=== PATIENT | female | born 1990 | race Two or more races ===

== ENCOUNTER 2017-01-18 20:35 | Emergency (ER) | payer OTHER ==
[2017-01-18 20:46] VITALS: BP 138/74
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
== END 2017-01-18 21:27 | disposition home or self-care (01) ==
LOC: UCEAST 20:35
DX: T20.20XA Burn of second degree of head, face, and neck, unspecified site, initial encounter (principal); T22.10XA Burn of first degree of shoulder and upper limb, except wrist and hand, unspecified site, initial encounter; T21.11XA Burn of first degree of chest wall, initial encounter; X08.8XXA Exposure to other specified smoke, fire and flames, initial encounter; Y92.9 Unspecified place or not applicable
CPT/HCPCS: 99202; G0463

== ENCOUNTER 2017-01-18 21:45 | Emergency (ER) | payer OTHER ==
[2017-01-19] MEDS ORDERED: Ibuprofen TAB* 200 MG PO ONE (00:28)
[2017-01-19] MEDS ORDERED: Ibuprofen TAB* 200 MG ONE (00:30)
[2017-01-19 00:36] VITALS: BP 131/77
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
== END 2017-01-19 00:35 | disposition home or self-care (01) ==
LOC: ED 21:45
DX: T20.09XA Burn of unspecified degree of multiple sites of head, face, and neck, initial encounter (principal); T22.00XA Burn of unspecified degree of shoulder and upper limb, except wrist and hand, unspecified site, initial encounter; E86.0 Dehydration
CPT/HCPCS: 99282; A9270-GY